=== PATIENT | female | born 1970 | race Caucasian/White ===

== ENCOUNTER 2021-02-19 08:59 | Outpatient (REF) | payer OTHER, SELFPAY ==
--- NOTE | ~2021-02-19 | XR_ITS ---
EXAMINATION: XR HAND, RIGHT CLINICAL INFORMATION: Pain in unspecified joint COMPARISON: None TECHNIQUE: PA, lateral, and oblique views of the right hand. FINDINGS: No fracture. No dislocation. Normal mineralization and alignment. XR/XR hand RT min 3V IMPRESSION: No acute osseous abnormality of the right hand.
--- NOTE | ~2021-02-19 | XR_ITS ---
EXAMINATION: XR HAND, LEFT CLINICAL INFORMATION: Pain and unspecified joint COMPARISON: None TECHNIQUE: PA, lateral, and oblique views of the left hand. FINDINGS: No fracture. No dislocation. Normal mineralization and alignment. No radiopaque foreign body. XR/XR hand LT min 3V IMPRESSION: No acute osseous abnormality of the left hand.
[2021-02-19 11:35] LABS: Hematocrit 39.3 % (37-47); Hemoglobin 13.5 g/dl (12.0-16.0); Mean Corpuscular HGB Conc 34.4 g/dl (31.0-35.0); Mean Corpuscular Hemoglobin 29.9 pg (27.0-33.0); Mean Corpuscular Volume 87.1 fL (80-98); Mean Platelet Volume 9.4 fL (9.4-12.3); Platelet Count 197 X10*3/uL (160-400); Red Blood Count 4.51 X10*6/uL (4.20-5.50); Red Cell Distribution Width 12.1 % (11.0-16.0); White Blood Count 4.8 X10*3/uL (4.8-10.8)
[2021-02-19 11:39] LABS: Appearance Urine CLEAR; Color Urine YELLOW; Glucose Urine UA NEG (NEG); Leukocyte Esterase Urine NEG (NEG); Nitrite Urine NEG (NEG); Specific Gravity - Urine 1.015 (1.005-1.025); Urine Blood NEG (NEG); Urine Ketones NEG (NEG); Urine Protein NEG (NEG-TRACE)
[2021-02-19 12:06] LABS: Alanine Aminotransferase 8 U/L (0-31); Albumin Level 4.6 g/dL (3.5-5.0); Alkaline Phosphatase 93 U/L (39-117); Anion Gap 12 (12-20); Aspartate Amino Transferase 16 U/L (5-31); Bilirubin Total 1.7 mg/dL (0.0-1.0); Blood Urea Nitrogen 11 mg/dL (9-16); Calcium 9.5 mg/dL (8.4-10.2); Carbon Dioxide 28 mmol/L (22-29); Chloride 104 mmol/L (96-108); Cholesterol 162 mg/dL; Estimated Glomerular Filt Rate > 60; Glucose Fasting 91 mg/dL (60-99); HDL Cholesterol 81 mg/dL; Iron 103 mcg/dL (30-160); LDL Cholesterol Calculated 72 mg/dl; Percent Iron Saturation 34 % (15-50); Potassium 4.1 mmol/L (3.3-5.1); Rheumatoid Factor < 15.0 IU/mL (<15.0); Sodium 140 mmol/L (135-145); Total Iron Binding Capacity 301 mcg/dL (228-428); Total Protein 6.7 g/dL (6.5-8.0); Triglycerides 45 mg/dL; Unsaturated Iron Binding 198 ug/dL
[2021-02-19 12:13] LABS: SARS COV2 IgG Negative (Negative)
[2021-02-19 12:19] LABS: TSH reflex Free T4 0.98 uIU/mL (0.32-4.0)
[2021-02-19 12:21] LABS: RBC Urine 0-2 /HPF (0); Squamous Epithelial Cell Urine TRACE /LPF; WBC Urine 0-2 /HPF (0-4)
[2021-02-23 12:46] LABS: Anti Nuclear Antibody Screen POSITIVE (NEGATIVE)
[2021-02-23 12:52] LABS: Anti Nuclear Antibody Titer 1:40 titer
[2021-02-23 20:56] LABS: Cyclic Citrullinated Peptide <16 UNITS
== END 2021-02-19 09:00 | disposition home or self-care (01) ==
LOC: HO.HMGCX 08:59
PROVIDERS: PCP Internal Medicine; Visit Provider Internal Medicine
DX: Z00.00 Encounter for general adult medical examination without abnormal findings (principal); Z20.822 Contact with and (suspected) exposure to COVID-19; M79.641 Pain in right hand; M79.642 Pain in left hand
CPT/HCPCS: 36415; 73130; 80053; 80061; 81001; 83540; 84443; 85027; 86038; 86039; 86200; 86431; 86769

== ENCOUNTER 2021-03-25 16:26 | Outpatient (REF) | payer OTHER, SELFPAY ==
--- NOTE | ~2021-03-25 | MM_ITS ---
EXAMINATION: MM SCREENING DIGITAL BREAST TOMOSYNTHESIS, BILATERAL CLINICAL INFORMATION: Screening. Asymptomatic. Family history breast cancer, mother. The lifetime risk of breast cancer based on the Tyrer-Cuzick Model is 12%. COMPARISON: Outside mammography: 01/07/2016 ([facility]). TECHNIQUE: Digital breast tomosynthesis is performed in both the craniocaudal and mediolateral oblique views along with computer-aided detection (CAD). Synthesized 2D images are generated from the tomosynthesis. Additional left MLO view is provided. FINDINGS: There are scattered areas of fibroglandular density (ACR BI-RADS breast composition Category b). Breast tissue composition borders on heterogeneously dense. Breast tissue composition appears less dense than on prior outside exam. The right breast shows no interval mass or architectural abnormality. Neither breast shows abnormal calcifications. The axilla are unremarkable. There is incidental dermal lesion overlying the posterior medial left breast. The left CC view has 0.5 cm asymmetric density retroareolar position just medial to midline. There is also a probable benign smooth nodule 3:00 retroareolar of uncertain chronicity, possibly chronic and partly obscured on prior exam. Patient will be recalled for additional imaging. MM/MM tomosynthesis screening BI IMPRESSION: 1. Left: Asymmetric density retroareolar position on CC view just medial to midline. Also probable benign smooth nodule 3:00 retroareolar. 2. Right: No mammographic evidence of malignancy. ASSESSMENT: BI-RADS 0: Incomplete - Need Additional Imaging Evaluation RECOMMENDATION: 1. Additional views of the left breast (3-D spot CC, 3-D spot ML). 2. Targeted ultrasound if warranted after review of the additional views. 3. Radiology department staff will contact the patient for additional imaging. This patient's information was entered into a reminder system with a target due date for their next mammogram.
== END 2021-03-25 16:27 | disposition home or self-care (01) ==
LOC: HO.MAMMO 16:26
PROVIDERS: Visit Provider Internal Medicine
DX: Z12.31 Encounter for screening mammogram for malignant neoplasm of breast (principal)
CPT/HCPCS: 77063; 77067

== ENCOUNTER 2021-04-05 14:23 | Outpatient (REF) | payer OTHER, SELFPAY ==
--- NOTE | ~2021-04-05 | MM_ITS ---
EXAMINATION: MM DIAGNOSTIC DIGITAL BREAST TOMOSYNTHESIS, LEFT US DIAGNOSTIC ULTRASOUND BREAST, LEFT CLINICAL INFORMATION: Recall from screening for 2 findings subareolar left breast: asymmetric density just medial to midline and small nodularity just lateral to midline. COMPARISON: Mammography: Mammography 03/25/2021, outside mammography 01/07/2016 ([facility]). TECHNIQUE: Digital breast tomosynthesis is performed. 2D images are generated from the tomosynthesis. The following views are obtained: Spot CC, spot ML. Ultrasound left breast is targeted to the subareolar and periareolar region using grayscale imaging and color Doppler without and with harmonics. FINDINGS: There are scattered areas of fibroglandular density (ACR BI-RADS breast composition Category b). Breast tissue composition borders on heterogeneously dense. Additional views show no persistent asymmetric density medial to midline. There is a small smooth nodularity subareolar breast corresponding to mild benign duct ectasia on ultrasound. Ultrasound demonstrates no cystic or solid mass. There is mild subareolar duct ectasia corresponding to the additional views. No intraductal mass or intraluminal color flow. No skin thickening or edema tracking in soft tissue planes. Results are discussed with the patient at time of visit. MM/MM tomosynthesis added views L IMPRESSION: Mild benign subareolar duct ectasia. ASSESSMENT: BI-RADS 2: Benign RECOMMENDATION: Routine annual mammography screening. This patient's information was entered into a reminder system with a target due date for their next mammogram.
== END 2021-04-05 14:24 | disposition home or self-care (01) ==
LOC: HO.MAMMO 14:23
PROVIDERS: Visit Provider Internal Medicine
DX: R92.2 Inconclusive mammogram (principal)
CPT/HCPCS: 76642; 77061; 77065

== ENCOUNTER 2021-07-12 15:29 | Emergency (ER) | payer OTHER, SELFPAY ==
--- NOTE | ~2021-07-12 | XR_ITS ---
EXAMINATION: XR HAND, LEFT CLINICAL INFORMATION: Laceration of finger. COMPARISON: Left hand 02/19/2021 TECHNIQUE: Three views of the left hand. FINDINGS: Soft tissue laceration of the distal fourth finger. There is a bandage around the distal fourth finger. No acute osseous abnormality. There is no fracture. Is no dislocation. XR/XR hand LT 2V IMPRESSION: Soft tissue laceration of the distal fourth finger. No acute osseous abnormality.
[2021-07-12 17:01] VITALS: BP 121/80; PULSE 113; RESP 18; TEMP 36.9; O2SAT 100; BMI 22.2
[2021-07-12] MEDS: Lidocaine HCl 1 % MPF 5 ML VIAL SUBCUT ×3 (17:55→18:56)
[2021-07-12 18:08] VITALS: BP 144/80; PULSE 102; RESP 16; O2SAT 99
--- NOTE | 2021-07-12 19:39 | ED_ITS ---
HPI - Wound/Laceration General Chief Complaint: Wound/Laceration Stated Complaint: left finger laceration Time Seen by Provider: 07/12/21 17:00 History of Present Illness HPI narrative: Patient complains of left 4th finger laceration when she tripped and fell and cut her finger on a glass No other injury no numbness weakness or tingling Related Data Previous Rx's Medication Instructions Recorded pimecrolimus 1 % topical cream 1 appl TOPICAL BID #100 g 02/10/21 (Elidel) cephalexin 500 mg tablet 500 mg PO TID 3 Days #9 tab 07/12/21 Allergies Allergy/AdvReac Type Severity Reaction Status Date / Time No Known Allergies Allergy Verified 07/12/21 14:28 Review of Systems Verdana 4l Review of Systems: Verdana 4d Verdana 4d Positive for left 4th finger laceration negatives are no dizziness no weakness no fainting no feeling faint no headache no neck pain no back pain no numbness weakness or tingling, no other extremity pains Verdana 4d Yes all other systemssystems are reviewed and are negative [facility] Past Medical History Source: nursing notes reviewed Medical History (Updated 07/12/21 @ 19:44 by CHELSEY Ramírez) Annual physical exam Arthralgia Psoriasis Family History Family History Father No problems noted. 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 Housing: House Patient Tobacco Use Status: Never used Tobacco e-Cigarette/Vaping Use: Never Used Advance Directives: No Advance Directives Information Provided: No Current occupational status: employed Physical Exam Verdana 4l Vital Signs: Verdana 4d Verdana 4d Vital Signs: Verdana 4d Verdana 4Bd Last Vital Signs Verdana 4d Cake Decorator New 4d Cake Decorator New 4d Temp 98.4 F 07/12/21 17:01 Cake Decorator New 4d Pulse 102 H 07/12/21 18:08 Cake Decorator New 4d Resp 16 07/12/21 18:08 BP 144/80 H 07/12/21 18:08 Pulse Ox 99 07/12/21 18:08 BMI result Body Mass Index 22.2 General appearance is no distress Head is normocephalic atraumatic Neck is supple Respiratory no distress Extremities full range of motion x4 Left ring finger exam the distal phalanx palmar surface has a large flap laceration with soft tissue protruding it is approximately 2.5 cm, there is sensation distal and flexion and extension seem intact tendon function seems intact, neurovascular intact Course Course Course Narrative: X-ray did not show any fracture or foreign body in the left 4th finger Procedure note The left 4th finger is numbed with 6 cc of 1% lidocaine digital block The wound is cleansed and irrigated with normal saline, checked for any foreign body none identified Closure is 7 x 5.0 nylon sutures Bleeding was controlled, and a dressing was applied The patient was informed that as it was a large flap lack that was nearly avulsed it remains to be seen if the skin is viable and she is advised to follow with hand doctor for follow-up check Discharge Plan Discharge Clinical Impression: Laceration of finger Patient Disposition: Home, Self-Care Additional Instructions: The skin of the flap laceration may pinked up and be good or it may turn into skin so I advise follow with the hand doctor to check wound healing The stitches should be removed in 7-10 days You got a tetanus shot today Return any time for redness swelling any sign of infection We are doing 3 days of preventive antibiotic Keflex Prescriptions: New cephalexin 500 mg tablet 500 mg PO TID 3 Days Qty: 9 0RF No Action pimecrolimus [Elidel] 1 % cream 1 appl topical BID Qty: 100 4RF Referrals: Pamela Garay MD [Physician] - 2 days (Skin available arshad about quarter- sized, question if the skin is viable it was sutured so advised to follow-up for hand doctor recheck)
== END 2021-07-12 19:53 | disposition home or self-care (01) ==
PROVIDERS: Emergency Provider Internal Medicine; PCP Internal Medicine
DX: S61.215A Laceration without foreign body of left ring finger without damage to nail, initial encounter (principal); W01.110A Fall on same level from slipping, tripping and stumbling with subsequent striking against sharp glass, initial encounter; Y93.9 Activity, unspecified; Y92.9 Unspecified place or not applicable; Y99.9 Unspecified external cause status
CPT/HCPCS: 12041; 73120; 90471; 99284

== ENCOUNTER 2022-03-02 09:25 | Outpatient (REF) | payer OTHER, SELFPAY ==
[2022-03-02 11:13] LABS: MANUAL DIFF FLAG NO
[2022-03-02 11:29] LABS: Basophils Absolute Auto 0.1 X10*3/uL (0.0-0.2); Basophils Percent Auto 1.1 % (0-2); Eosinophils Absolute Auto 0.1 X10*3/uL (0.0-0.4); Eosinophils Percent Auto 2.1 % (0-4); Hemoglobin 13.2 g/dl (12.0-16.0); Imm Gran Abs Auto 0.01 X10*3/uL (0.00-0.03); Imm Gran Pct Auto 0.2 % (0.0-0.4); Lymphocytes Absolute Auto 1.5 X10*3/uL (1.2-4.9); Lymphocytes Percent Auto 35.3 % (20-40); Mean Corpuscular HGB Conc 33.8 g/dl (31.0-35.0); Mean Corpuscular Hemoglobin 29.5 pg (27.0-33.0); Mean Corpuscular Volume 87.1 fL (80.0-98.0); Mean Platelet Volume 9.4 fL (9.4-12.3); Monocytes Absolute Auto 0.4 X10*3/uL (0.1-1.2); Monocytes Percent Auto 8.3 % (2-11); Neutrophils Absolute Auto 2.3 x10*3/uL (2.0-8.3); Platelet Count 189 X10*3/uL (160-400); Red Blood Count 4.48 X10*6/uL (4.20-5.50); White Blood Count 4.4 X10*3/uL (4.8-10.8)
[2022-03-02 11:52] LABS: Alanine Aminotransferase 11 U/L (0-31); Albumin Level 4.6 g/dL (3.5-5.0); Alkaline Phosphatase 89 U/L (39-117); Anion Gap 13 (12-20); Aspartate Amino Transferase 17 U/L (5-31); Bilirubin Total 1.3 mg/dL (0.0-1.0); Blood Urea Nitrogen 13 mg/dL (9-16); Calcium 9.3 mg/dL (8.4-10.2); Carbon Dioxide 28 mmol/L (22-29); Chloride 103 mmol/L (96-108); Cholesterol 178 mg/dL; Estimated Glomerular Filt Rate > 60; Glucose Fasting 95 mg/dL (60-99); HDL Cholesterol 81 mg/dL; LDL Cholesterol Calculated 90 mg/dl; Potassium 4.2 mmol/L (3.3-5.1); Sodium 140 mmol/L (135-145); Total Protein 6.9 g/dL (6.5-8.0); Triglycerides 35 mg/dL
[2022-03-02 11:56] LABS: TSH reflex Free T4 1.36 uIU/mL (0.32-4.0)
== END 2022-03-02 09:26 | disposition home or self-care (01) ==
LOC: HO.HMGCLDS 09:25
PROVIDERS: PCP Internal Medicine; Visit Provider Internal Medicine
DX: Z00.00 Encounter for general adult medical examination without abnormal findings (principal)
CPT/HCPCS: 36415; 80053; 80061; 84443; 85025

== ENCOUNTER 2022-08-30 15:31 | Outpatient (REF) | payer OTHER, SELFPAY ==
--- NOTE | ~2022-08-30 | MM_ITS ---
EXAMINATION: MM SCREENING DIGITAL BREAST TOMOSYNTHESIS, BILATERAL CLINICAL INFORMATION: Screening. Asymptomatic. Family history breast cancer, mother. The lifetime risk of breast cancer based on the Tyrer-Cuzick Model is 14%. COMPARISON: Mammography: 04/05/2021, 03/25/2021; 01/07/2016 ([facility]); left breast ultrasound 04/05/2021. TECHNIQUE: Digital breast tomosynthesis is performed in both the craniocaudal and mediolateral oblique views along with computer-aided detection (CAD). Synthesized 2D images are generated from the tomosynthesis. FINDINGS: There are scattered areas of fibroglandular density (ACR BI-RADS breast composition Category b). Breast tissue composition borders on heterogeneously dense. There is no significant mass or architectural abnormality or abnormal calcifications. Small circumscribed nodule around 5 mm again noted outer retroareolar left breast. The axilla are unremarkable. There is a dermal lesion again noted overlying the posterior medial left breast. MM/MM tomosynthesis screening BI IMPRESSION: No mammographic evidence of malignancy. ASSESSMENT: BI-RADS 2: Benign RECOMMENDATION: Routine annual mammography screening. This patient's information was entered into a reminder system with a target due date for their next mammogram.
== END 2022-08-30 15:32 | disposition home or self-care (01) ==
LOC: HO.MAMMO 15:31
PROVIDERS: PCP Internal Medicine; Visit Provider Internal Medicine
DX: Z12.31 Encounter for screening mammogram for malignant neoplasm of breast (principal)
CPT/HCPCS: 77063; 77067

== ENCOUNTER 2022-10-06 14:15 | Outpatient (REF) | payer OTHER, SELFPAY ==
--- NOTE | ~2022-10-06 | XR_ITS ---
EXAMINATION: XR KNEE AP STANDING CLINICAL INFORMATION: Pain COMPARISON: None available. TECHNIQUE: AP bilateral standing view of the knees was obtained. FINDINGS: Right knee: No fracture or subluxation. Compartmental joint spaces are maintained. Small marginal osteophytes of the patellofemoral compartment. No joint effusion. The soft tissues are unremarkable. Left knee: No fracture or subluxation. Compartmental joint spaces are maintained. Tiny marginal osteophytes of the patellofemoral compartment. No joint effusion. The soft tissues are unremarkable. XR/XR knee standing BI IMPRESSION: Mild degenerative changes of the patellofemoral compartments bilaterally.
== END 2022-10-06 14:16 | disposition home or self-care (01) ==
LOC: HO.HMGCX 14:15
PROVIDERS: PCP Internal Medicine; Visit Provider Internal Medicine
DX: M25.561 Pain in right knee (principal); M25.562 Pain in left knee
CPT/HCPCS: 73565

== ENCOUNTER 2022-11-02 10:57 | Outpatient (REF) | payer OTHER, SELFPAY ==
--- NOTE | ~2022-11-02 | XR_ITS ---
EXAMINATION: XR HAND, RIGHT CLINICAL INFORMATION: Pain COMPARISON: None available. TECHNIQUE: PA, lateral, and oblique views of the right hand. FINDINGS: Bone alignment is normal. No fracture or dislocation. 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 Small soft tissue calcification adjacent to the ulnar side of the DIP joint of the fourth finger. Joint spaces and soft tissues are otherwise unremarkable. XR/XR hand RT min 3V IMPRESSION: Small soft tissue calcification adjacent to the ulnar side of the DIP joint of the fourth finger. 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
== END 2022-11-02 10:58 | disposition home or self-care (01) ==
LOC: HO.HOSX 10:57
PROVIDERS: Visit Provider Orthopaedic Surgery
DX: L03.011 Cellulitis of right finger (principal)
CPT/HCPCS: 73130

== ENCOUNTER 2023-09-13 15:23 | Outpatient (REF) | payer OTHER, SELFPAY ==
--- NOTE | ~2023-09-13 | MM_ITS ---
EXAMINATION: MM SCREENING DIGITAL BREAST TOMOSYNTHESIS, BILATERAL CLINICAL INFORMATION: Screening. Asymptomatic. COMPARISON: Mammography: 08/30/2022, 04/05/2021, 03/25/2021, and 01/07/2016. TECHNIQUE: Digital breast tomosynthesis is performed in both the craniocaudal and mediolateral oblique views along with computer-aided detection (CAD). Synthesized 2D images are generated from the tomosynthesis. FINDINGS: The breasts are heterogeneously dense, which may obscure small masses (ACR BI-RADS breast composition Category c). Stable dermal lesion in the far medial posterior left breast. Mild vascular calcifications bilaterally. Small circumscribed nodule around 5 mm again noted outer retroareolar left breast. There are no suspicious masses, suspicious grouped calcifications, or areas of architectural distortion in either breast. The parenchymal pattern is stable from prior exams. No axillary abnormality. MM/MM tomosynthesis screening BI IMPRESSION: No mammographic evidence of malignancy. No significant change. ASSESSMENT: BI-RADS BI-RADS 2 - Benign Findings RECOMMENDATION: Routine annual mammography screening. 1 year F/U This examination should not preclude the clinical evaluation of a suspicious palpable abnormality. This patient's information was entered into a reminder system with a target due date for their next mammogram.
== END 2023-09-13 15:24 | disposition home or self-care (01) ==
LOC: HO.MAMMO 15:23
PROVIDERS: PCP Internal Medicine; Visit Provider Internal Medicine
DX: Z12.31 Encounter for screening mammogram for malignant neoplasm of breast (principal)
CPT/HCPCS: 77063; 77067

== ENCOUNTER → 2023-09-13 15:30 | Outpatient (BNV) | payer OTHER, SELFPAY | PROVIDERS: PCP Internal Medicine; Visit Provider Radiology Diagnostic Radiology | DX: Z12.31 Encounter for screening mammogram for malignant neoplasm of breast (principal) | CPT/HCPCS: 77063; 77067 ==

== ENCOUNTER 2024-02-23 13:29 | Outpatient (AMB) | payer OTHER, SELFPAY ==
--- NOTE | 2024-02-23 13:39 | MHC.PC.OV ---
Vital Signs 02/23/24 13:53 Height 5 ft 7 in Weight 147 lb BMI 23.0 BP 120/76 Blood Pressure Location Lt brachial Position Sitting Pulse 87 Pulse Source Pulse Oximeter Pulse Oximetry (%) 96 Oxygen Delivery Method Room Air Intake Visit Reasons: Body and bones pain Intake Note: Pt is here today for a follow up visit on pain all over her body. Allergies No Known Allergies Allergy (Verified 02/23/24 13:56) Medication List - Last Reconciled 02/23/24 by Naomi Mcduffie MD azelaic acid 20% 1 appl topical BID Tobacco use date assessed: 02/23/24 Dental Screening Dental Screen Date: 02/23/24 Did you have a dental visit in the last 12 months?: Yes Did you have a dental problem in the last 6 months where you did not have access to dental care?: No Was dental information given to patient?: Patient has dentist HPI Body and bones pain HPI Details Pt c/o diffuse all 4 extremities achiness and skin sensitivity to touch on and off for 2 years. Patient denies joint swelling erythema or warmth, stiffness. She denies insomnia depression fever chills night sweats. She would like to be checked for vitamins deficiency. Patient needs well-balanced diet and has been taking a multivitamin a day. 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 [facility] Medical History Psoriasis Arthralgia Annual physical exam Surgical History No pertinent past surgical history Family History Father No problems noted. 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 1. Little interest or pleasure in doing things: not at all 2. Feeling down, depressed, or hopeless: not at all 3. Trouble falling or staying asleep, or sleeping too much: not at all 4. Feeling tired or having little energy: not at all 5. Poor appetite or overeating: not at all 6. Feeling bad about yourself - or that you are a failure or have let yourself or your family down: not at all 7. Trouble concentrating on things, such as reading the newspaper or watching television: not at all 8. Moving or speaking so slowly that other people could have noticed. Or the opposite - being so fidgety or restless that you have been moving around a lot more than usual: not at all 9. Thoughts that you would be better off or of hurting yourself in some way: not at all Total score: 0 Depression Screening Interpretation: Negative Depression Screening Done: Yes 54683 - PHQ-9 Billing: Yes Source: Developed by Drs. Dusty Cabral, Brittney Clark, Tone Chris and colleagues, with an educational ezra from [employer]. Thrive Questionnaire Date Thrive assessed: 02/23/24 I am a: Patient What is your living situation today?: I have a steady place to live Within the past 12 months, did the food you bought not last and you didn't have the money to get more?: Never true Within the past 12 months, did you worry whether your food would run out before you got money to buy more?: Never true Do you have trouble paying for medicines?: No Do you have trouble getting transportation to medical appointments?: No Do you have trouble paying your heating and electricity bill?: No Do you have trouble taking care of your child, family member or friend?: No Do you have trouble with day-to-day activities such as bathing, preparing meals, shopping, managing finances, etc.?: No Are you currently unemployed and looking for a job?: No Are you interested in more education?: No Please select the resources that you would like help with: None THRIVE Score: 0 AUDIT C Alcohol Use Questionnaire (AUDIT-C) 1. How often do you have a drink containing alcohol?: Never 3. How often do you have six or more drinks on one occasion?: Never Total Score: 0 KATHRIN-7 AMB Questionnaire KATHRIN-7 Date KATHRIN - 7 assessed: 02/23/24 Feeling nervous, anxious, or on edge: 0 = Not at all Not being able to stop or control worryin = Not at all Worrying too much about different things: 0 = Not at all Trouble relaxin = Not at all Being so restless that it is hard to sit still: 0 = Not at all Becoming easily annoyed or irritable: 0 = Not at all Feeling afraid as if something awful might happen: 0 = Not at all Total KATHRIN-7 score (0-4 normal; 5-9 mild; 10-14 moderate; 15-21 severe): 0 Source: Developed by Drs. Dusty Cabarl, Brittney Clark, Tone Chris and colleagues, with an educational ezra from [employer]. KATHRIN-7 Assessment Billing KATHRIN-7 Assessment Tool: KATHRIN-7 Assessment 43128 Review of Systems Const All systems reviewed & are unremarkable except as noted in HPI and below Eyes Reports no additional complaints ENT Reports no additional complaints Card Reports no additional complaints Resp Reports no additional complaints GI Reports no additional complaints Reports no additional complaints Physical exam (Primary Care) Vital Signs: Last Vital Signs Pulse 87 02/23/24 13:53 BP 120/76 02/23/24 13:53 Pulse Ox 96 02/23/24 13:53 Oxygen Delivery Method Room Air 02/23/24 13:53 BMI result Body Mass Index 23.0 Tobacco/Smoking Status: Tobacco use Status Tobacco use date assessed 02/23/24 02/23/24 14:00 Patient Tobacco Use Status Never used Tobacco 02/23/24 14:00 e-Cigarette/Vaping Use Never Used 02/23/24 13:39 PHQ-9: PHQ-9 Score PHQ-9: Total score 0 02/23/24 14:00 Depression Screening Interpretation: Negative Thrive Assessment: Date of Thrive Assessment Date Thrive assessed 02/23/24 02/23/24 14:00 Const General: no acute distress HENMT Head: Yes normal to inspection Ears: hearing grossly normal bilaterally Face and sinus: Yes normal facial exam Throat: Yes posterior oropharynx normal Eyes General: appearance normal, both eyes and all related structures Neck Neck: Yes no lymphadenopathy and Yes supple Resp Effort & Inspection: normal respiratory effort Auscultation: clear to auscultation bilaterally Cardio Rhythm: regular rhythm Heart sounds: S1 normal heart sound present and S2 normal heart sound present GI Inspection: Yes normal to inspection Palpation (GI): Soft to palpation Percussion: Yes normal to percussion Auscultation: normal bowel sounds Skin General skin exam: no rashes or lesions noted Neuro Cranial nerves: Yes CN's II-XII intact bilaterally Gait exam (Neuro): Normal gait present Motor exam (neuro): 5/5 motor strength present throughout Extrem General: Yes normal to inspection, Yes full ROM, Yes no joint enlargement and Yes no clubbing, cyanosis or edema Right upper extremity: normal to inspection and full ROM Left upper extremity: normal to inspection and full ROM Psych Speech and movement: Normal speech and movement present Assessment and Plan Assessment & Plan (1) Annual physical exam: Code(s): Z00.00 - Encounter for general adult medical examination without abnormal findings Plan: Well-balanced diet regular physical activity discussed with the patient. She is up-to-date with the mammogram and refused colonoscopy and Pap smear (2) Arthralgia: Code(s): M25.50 - Pain in unspecified joint Plan: For diffuse extremity pains blood work including sed rate arthritis panel B12 and vitamin-D level will be checked. (3) History of Lyme disease: Code(s): Z86.19 - Personal history of other infectious and parasitic diseases Plan: Check Lyme titer Orders: Orders Vitamin B12 and Folate Today M25.50 - Pain in unspecified joint, Z00.00 - Encounter for general adult medical examination without abnormal findings Vitamin B1 Today M25.50 - Pain in unspecified joint, Z00.00 - Encounter for general adult medical examination without abnormal findings Vitamin D 25-OH Total Today M25.50 - Pain in unspecified joint, Z00.00 - Encounter for general adult medical examination without abnormal findings Erythrocyte Sedimentation Rate Today M25.50 - Pain in unspecified joint, Z00.00 - Encounter for general adult medical examination without abnormal findings Magnesium Today M25.50 - Pain in unspecified joint, Z00.00 - Encounter for general adult medical examination without abnormal findings RADHA Reflex Titer and Pattern Today M25.50 - Pain in unspecified joint, Z00.00 - Encounter for general adult medical examination without abnormal findings Complete Blood Count Auto Diff Today M25.50 - Pain in unspecified joint, Z00.00 - Encounter for general adult medical examination without abnormal findings Comprehensive [place]. Panel Fast Today M25.50 - Pain in unspecified joint, Z00.00 - Encounter for general adult medical examination without abnormal findings Lipid Panel Today M25.50 - Pain in unspecified joint, Z00.00 - Encounter for general adult medical examination without abnormal findings Vitamin B6 Today M25.50 - Pain in unspecified joint, Z00.00 - Encounter for general adult medical examination without abnormal findings TSH reflex Free T4 Today M25.50 - Pain in unspecified joint, Z00.00 - Encounter for general adult medical examination without abnormal findings Lyme IgG/IgM w/reflex to WB Today M25.50 - Pain in unspecified joint, Z00.00 - Encounter for general adult medical examination without abnormal findings Coding Level of Care Code Est Pt Prev Care 40-64y(71493) Diagnoses Annual physical exam Z00.00 Arthralgia M25.50 History of Lyme disease Z86.19 Additional Codes KATHRIN-7 Assessment Billing - KATHRIN-7 Assessment Tool: KATHRIN-7 Assessment [id number] ([id number])
[2024-02-23 13:53] VITALS: BP 120/76; PULSE 87; O2SAT 96; BMI 23.0
== END 2024-02-23 14:45 | disposition home or self-care (01) ==
PROVIDERS: PCP Internal Medicine; Visit Provider Internal Medicine
DX: Z00.00 Encounter for general adult medical examination without abnormal findings (principal); M25.50 Pain in unspecified joint; Z86.19 Personal history of other infectious and parasitic diseases
CPT/HCPCS: 99396

== ENCOUNTER 2024-03-09 09:40 | Outpatient (REF) | payer OTHER, SELFPAY ==
[2024-03-09 11:19] LABS: MANUAL DIFF FLAG NO
[2024-03-09 11:32] LABS: Eosinophils Absolute Auto 0.1 X10*3/uL (0.0-0.4); Eosinophils Percent Auto 2.9 % (0-4); Hematocrit 38.2 % (37.0-47.0); Hemoglobin 13.3 g/dl (12.0-16.0); Imm Gran Abs Auto 0.01 X10*3/uL (0.00-0.03); Imm Gran Pct Auto 0.2 % (0.0-0.4); Lymphocytes Absolute Auto 1.2 X10*3/uL (1.2-4.9); Lymphocytes Percent Auto 29.7 % (20-40); Mean Corpuscular HGB Conc 34.8 g/dl (31.0-35.0); Mean Corpuscular Hemoglobin 30.2 pg (27.0-33.0); Mean Corpuscular Volume 86.8 fL (80.0-98.0); Mean Platelet Volume 9.2 fL (9.4-12.3); Monocytes Absolute Auto 0.4 X10*3/uL (0.1-1.2); Monocytes Percent Auto 9.6 % (2-11); Neutrophils Absolute Auto 2.4 x10*3/uL (2.0-8.3); Neutrophils Percent Auto 56.6 % (45-73); Platelet Count 202 X10*3/uL (160-400); Red Cell Distribution Width 12.3 % (11.0-16.0); White Blood Count 4.2 X10*3/uL (4.8-10.8)
[2024-03-09 11:58] LABS: Alanine Aminotransferase 17 U/L (0-31); Albumin Level 4.6 g/dL (3.5-5.0); Alkaline Phosphatase 88 U/L (39-117); Anion Gap 12 (12-20); Aspartate Amino Transferase 21 U/L (5-31); Bilirubin Total 1.3 mg/dL (0.0-1.0); Blood Urea Nitrogen 12 mg/dL (9-16); Calcium 9.8 mg/dL (8.4-10.2); Carbon Dioxide 26 mmol/L (22-29); Chloride 106 mmol/L (96-108); Cholesterol 178 mg/dL (<200); Estimated Glomerular Filt Rate > 60; Glucose Fasting 96 mg/dL (60-99); HDL Cholesterol 88 mg/dL (>40); LDL Cholesterol Calculated 80 mg/dL (<100); Magnesium 2.3 mg/dL (1.6-2.6); Potassium 4.1 mmol/L (3.3-5.1); Sodium 140 mmol/L (135-145); Total Protein 7.1 g/dL (6.5-8.0); Triglycerides 53 mg/dL (<150)
[2024-03-09 12:02] LABS: TSH reflex Free T4 1.19 uIU/mL (0.32-4.0); Vitamin D 25-OH Total 56.2 ng/mL (>30)
[2024-03-09 12:16] LABS: Erythrocyte Sedimentation Rate 2 MM/HR (0-20)
[2024-03-09 12:19] LABS: Folate 16.1 ng/mL (> or = 4.0); Vitamin B12 525 pg/mL (200-900)
[2024-03-12 06:44] LABS: Lyme Abs Screen 1.03 index
[2024-03-13 11:48] LABS: Anti Nuclear Antibody Screen POSITIVE (NEGATIVE)
[2024-03-14 14:48] LABS: Vitamin B6 24.8 ng/mL (2.1-21.7)
[2024-03-15 17:54] LABS: Vitamin B1 15 nmol/L (8-30)
[2024-03-18 17:44] LABS: Lyme Blot 1.03 index
[2024-03-19 20:18] LABS: 18 KD (IgG) Band NON-REACTIVE; 23 KD (IgG) Band NON-REACTIVE; 23 KD (IgM) Band REACTIVE; 28 KD (IgG) Band NON-REACTIVE; 30 KD (IgG) Band NON-REACTIVE; 39 KD (IgM) Band NON-REACTIVE; 39KD (IgG) Band NON-REACTIVE; 41 KD (IgM) Band NON-REACTIVE; 41KD (IgG) Band NON-REACTIVE; 45 KD (IgG) Band NON-REACTIVE; 58 KD (IgG) Band NON-REACTIVE; 66 KD (IgG) Band NON-REACTIVE; 93 KD (IgG) Band NON-REACTIVE; Lyme IgG Blot Interp NEGATIVE (NEGATIVE); Lyme IgM Blot Interp NEGATIVE (NEGATIVE)
== END 2024-03-09 09:41 | disposition home or self-care (01) ==
LOC: HO.HMGCLDS 09:40
PROVIDERS: PCP Internal Medicine; Visit Provider Internal Medicine
DX: Z00.00 Encounter for general adult medical examination without abnormal findings (principal); M25.50 Pain in unspecified joint
CPT/HCPCS: 36415; 80053; 80061; 82306; 82607; 82746; 83735; 84207; 84425; 84443; 85025; 85652; 86038; 86039; 86617; 86618

== ENCOUNTER 2024-11-11 08:50 | Outpatient (REF) | payer OTHER, SELFPAY ==
[2024-11-12 06:04] LABS: Lyme Blot 1.29 index
[2024-11-13 13:17] LABS: Lyme Abs Screen POSITIVE
[2024-11-18 22:08] LABS: 18 KD (IgG) Band NON-REACTIVE; 23 KD (IgG) Band NON-REACTIVE; 23 KD (IgM) Band REACTIVE; 28 KD (IgG) Band NON-REACTIVE; 30 KD (IgG) Band NON-REACTIVE; 39 KD (IgM) Band NON-REACTIVE; 39KD (IgG) Band NON-REACTIVE; 41 KD (IgM) Band NON-REACTIVE; 41KD (IgG) Band NON-REACTIVE; 45 KD (IgG) Band NON-REACTIVE; 58 KD (IgG) Band NON-REACTIVE; 66 KD (IgG) Band NON-REACTIVE; 93 KD (IgG) Band NON-REACTIVE; Lyme IgG Blot Interp NEGATIVE (NEGATIVE); Lyme IgM Blot Interp NEGATIVE (NEGATIVE)
== END 2024-11-11 08:51 | disposition home or self-care (01) ==
LOC: HO.HMGCLDS 08:50
PROVIDERS: PCP Internal Medicine; Visit Provider Nurse Practitioner Family
DX: M25.59 Pain in other specified joint (principal); R50.9 Fever, unspecified; Z86.19 Personal history of other infectious and parasitic diseases
CPT/HCPCS: 36415; 86617; 86618

== ENCOUNTER 2024-11-11 08:50 | Outpatient (AMB) | payer OTHER, SELFPAY ==
--- OUTSIDE RECORDS SUMMARY | 2024-11-11 09:16 | XMS_ITS | Clinical Summary ---
Author Organization [facility] Address [address] [place] [address] Care Team Providers Care Lockstitch Topstitcher Name Role Phone Unavailable Primary Care Provider Unavailabl e Social History Tobacco Use Types Packs/Day Years Used Date Smoking Tobacco: Never Assessed Comments Unknown Sex and Gender Information Value Date Recorded Sex Assigned at Not on file Legal Sex Female 5:38 PM EST Gender Identity Not on file Sexual Orientation Not on file Plan of Treatment Health Maintenance Due Date Last Done Comments Breast Cancer Screening 1969 DTaP,Tdap,and Td Vaccines (1 - Tdap) 1988 Hepatitis B Vaccines (1 of 3 - 19+ 3-dose series) 1988 Cervical Cancer Screening: P ap Smear 1990 Pneumococcal Vaccine: 50+ Ye ars (1 of 1 - PCV) 2019 Zoster Vaccines (1 of 2) 2019 Colorectal Cancer Screening: Colonoscopy 01/02/2024 Depression Screening 01/02/2024 HIV Screening 01/02/2024 Hepatitis C Screening 01/02/2024 Social Influencers of Health Screening 01/02/2024 COVID-19 Vaccine ( - 2023-2 5 season) 2024 Influenza Vaccine (Season Ended) 2025 HIB Vaccines Aged Out No longer eligi ble based on patient's age to complete this topic HPV Vaccines Aged Out No longer eligi ble based on patient's age to complete this topic Hepatitis A Vaccines Aged Out No long er eligible based on patient's age to complete this topic IPV Vaccines Aged Out No longer eligi ble based on patient's age to complete this topic MMR Vaccines Aged Out No longer eligi ble based on patient's age to complete this topic Meningococcal ACWY Vaccine Aged Out N o longer eligible based on patient's age to complete this topic Meningococcal B Vaccine Aged Out No l onger eligible based on patient's age to complete this topic Pneumococcal Vaccine: Pediat rics (0 to 5 Years) and At-Risk Patients (6 to 64 Years) Aged Out No longer eligible b ased on patient's age to complete this topic RSV Immunization Patients Un ramón 20 months Aged Out No longer eligible b ased on patient's age to complete this topic Varicella Vaccines Aged Out No longer eligible based on patient's age to complete this topic
--- NOTE | 2024-11-11 09:32 | AM.OFFWIN_ITS ---
Intake Vital Signs 11/11/24 09:34 Height 5 ft 7 in Weight 147 lb BMI 23.0 BP 122/80 Blood Pressure Location Lt brachial Position Sitting Pulse 91 Pulse Source Pulse Oximeter Temp 98.1 F Temp Source Oral Pulse Oximetry (%) 98 Oxygen Delivery Method Room Air Intake Visit Reasons: EP hand swelling 10 days, body pain Intake Note: Patient here for headaches at back of neck, body aches and hand swelling that has been present for about 10 days. She would like to get checked for lyme since she has had it in the past. Patient Tobacco Use Status: Never used Tobacco Allergies No Known Allergies Allergy (Verified 11/11/24 09:36) Do you need a note to return to daycare/school/sports/work: No HPI HPI Comments History of Present Illness Details 54 y/o Female patient who presents to [facility] walk in clinic with c/o Subjective fevers, headaches at back of neck, body aches and right hand swelling that has been present for about 10 days. She would like to get tested for lyme disease since she previously had the disease. [facility] Medical History Psoriasis Arthralgia Annual physical exam Surgical History No pertinent past surgical history Family History Father No problems noted. 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 Cognitive needs: No Hearing needs: No Vision needs: Yes Review of Systems Const All systems reviewed & are unremarkable except as noted in HPI and below Physical Exam Vital Signs: Last Vital Signs Temp 98.1 F 11/11/24 09:34 Pulse 91 11/11/24 09:34 BP 122/80 11/11/24 09:34 Pulse Ox 98 11/11/24 09:34 Oxygen Delivery Method Room Air 11/11/24 09:34 BMI result Body Mass Index 23.0 Const General: no acute distress Orientation/consciousness: patient oriented x3 Resp Effort & Inspection: normal respiratory effort Auscultation: clear to auscultation bilaterally Cardio Heart sounds: S1 normal heart sound present and S2 normal heart sound present Neuro General: patient oriented x3, gait normal and moves all extremities Extrem Right upper extremity: Extremity exam: right hand Details: normal capillary refill and swelling Location: of the dorsal hand; no tenderness Left upper extremity: normal to inspection and full ROM Assessment & Plan Assessment & Plan (1) History of Lyme disease: Code(s): Z86.19 - Personal history of other infectious and parasitic diseases Plan: Tested Positive Lyme IGM 2023 - not clear if she received treatment or not. Ordered Another Lyme Advised NSAIDs for pain and fever relief. F/U with PCP. (2) Arthralgia: Code(s): M25.50 - Pain in unspecified joint Qualifiers: Joint pain location: other joint Qualified Code(s): M25.59 - Pain in other specified joint Plan: Tested Positive Lyme IGM 2023 - not clear if she received treatment or not. Ordered Another Lyme Advised NSAIDs for pain and fever relief. F/U with PCP. Orders: Orders Lyme IgG/IgM w/reflex to WB Today Z86.19 - Personal history of other infectious and parasitic diseases Coding Level of Care Code Est Pt Level 4 (18759) Diagnoses History of Lyme disease Z86.19 Pain in other joint M25.59 Joint pain location: other joint Time Spent (min) 20
[2024-11-11 09:34] VITALS: BP 122/80; PULSE 91; TEMP 36.7; O2SAT 98; BMI 23.0
== END 2024-11-11 10:24 | disposition home or self-care (01) ==
PROVIDERS: PCP Internal Medicine; Visit Provider Nurse Practitioner Family
DX: Z86.19 Personal history of other infectious and parasitic diseases (principal); M25.59 Pain in other specified joint

== ENCOUNTER 2024-11-20 15:02 | Outpatient (AMB) | payer OTHER, SELFPAY ==
[2024-11-20 15:04] VITALS: BP 136/76; PULSE 89; RESP 16; TEMP 36.8; O2SAT 99; BMI 23.0
--- NOTE | 2024-11-20 15:04 | MHC.PC.OV ---
Vital Signs 11/20/24 15:04 Height 5 ft 7 in Weight 147 lb BMI 23.0 BP 136/76 Blood Pressure Location Rt brachial Position Sitting Respiration 16 Pulse 89 Pulse Source Pulse Oximeter Temp 98.2 F Temp Source Oral Pulse Oximetry (%) 99 Intake Visit Reasons: hand pain follow up from MD Allergies No Known Allergies Allergy (Verified 11/11/24 09:36) Medication List - Last Reconciled 11/20/24 by Ladi Cheng MD ascorbic acid (vitamin C) mg PO vitamin D3-vitamin K2 (MK4) 1,000-100 unit-mcg 1 tab PO DAILY Tobacco use date assessed: 11/20/24 Dental Screening Dental Screen Date: 11/20/24 Did you have a dental visit in the last 12 months?: Yes Did you have a dental problem in the last 6 months where you did not have access to dental care?: Yes Was dental information given to patient?: Patient has dentist HPI hand pain follow up from MD HPI Details History - The patient is a 54-year-old female presenting with a flare-up of Lyme Disease symptoms. - The patient reports experiencing a high fever of 38.5?C about three weeks ago, which persisted for three days. - She describes experiencing severe body pain, particularly in the bones and shoulders, which has been ongoing. - The patient has a history of Lyme Disease diagnosed six years ago, treated with two courses of antibiotics. - Initially, symptoms resolved; however, she reports a resurgence in symptoms, including bone pain and headaches, especially at night. - Laboratory results shows Lyme Disease, but titers were noted to be elevated. Lyme IgM 23 KD a band positive, with Lyme progressive test titer higher than February And patient is symptomatic with recurrent tick bites Medical History: - History of Lyme Disease, initially treated six years ago Social History: - The patient mentions frequent tick bites and extensive measures taken at home to reduce tick exposure, including spraying disinfectant and treating pets. - The patient notes staying active and engaged in proactive measures to manage her home environment. Problem List - Lyme Disease flare Patient Instructions - The patient was instructed to take doxycycline twice a day, 12 hours apart, for one month. - Pickup the prescribed medication from the pharmacy. - Maintain precautions against tick exposure at home. - Monitor for any worsening symptoms and follow-up if needed. Review of Systems - General: No fever no chills - Neurological: No headaches no dizziness - Ear nose throat: No sore throat no hearing difficulty no ear pain - Cardiovascular: No syncope, no chest pain, no palpitations - Gastrointestinal: No nausea vomiting or diarrhea Physical Exam - General: No acute distress - HEENT: No acute findings - Neck: Supple - Respiratory system: Able to talk in full sentences, no audible wheeze - Cardiovascular: S1-S2 regular in rate and rhythm - Gastrointestinal: No pain - Extremities: Take bite right forearm 3 days ago - CONTACT OFFICER: Alert awake oriented x3 motor sensory intact - Skin: Normal turgor PENDING SALE TO [facility] Medical History Psoriasis Arthralgia Annual physical exam Surgical History (Reviewed 11/20/24 @ 15: by Ladi Cheng MD) No pertinent past surgical history Family History Father No problems noted. 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 1. Little interest or pleasure in doing things: not at all 2. Feeling down, depressed, or hopeless: not at all 3. Trouble falling or staying asleep, or sleeping too much: not at all 4. Feeling tired or having little energy: not at all 5. Poor appetite or overeating: not at all 6. Feeling bad about yourself - or that you are a failure or have let yourself or your family down: not at all 7. Trouble concentrating on things, such as reading the newspaper or watching television: not at all 8. Moving or speaking so slowly that other people could have noticed. Or the opposite - being so fidgety or restless that you have been moving around a lot more than usual: not at all 9. Thoughts that you would be better off or of hurting yourself in some way: not at all Total score: 0 Depression Screening Interpretation: Negative Depression Screening Done: Yes 68757 - PHQ-9 Billing: Yes Source: Developed by Drs. Dusty Cabral, Brittney Clark, Tone Chris and colleagues, with an educational ezra from [email or web address]. Thrive Questionnaire Date Thrive assessed: 11/20/24 I am a: Patient What is your living situation today?: I have a steady place to live Within the past 12 months, did the food you bought not last and you didn't have the money to get more?: Never true Within the past 12 months, did you worry whether your food would run out before you got money to buy more?: Never true Do you have trouble paying for medicines?: No Do you have trouble getting transportation to medical appointments?: No Do you have trouble paying your heating and electricity bill?: No Do you have trouble taking care of your child, family member or friend?: No Do you have trouble with day-to-day activities such as bathing, preparing meals, shopping, managing finances, etc.?: No Are you currently unemployed and looking for a job?: No Are you interested in more education?: No THRIVE Score: 0 AUDIT C Alcohol Use Questionnaire (AUDIT-C) 1. How often do you have a drink containing alcohol?: Never Total Score: 0 KATHRIN-7 AMB Questionnaire KATHRIN-7 Date KATHRIN - 7 assessed: 11/20/24 Feeling nervous, anxious, or on edge: 0 = Not at all Not being able to stop or control worryin = Not at all Worrying too much about different things: 0 = Not at all Trouble relaxin = Not at all Being so restless that it is hard to sit still: 0 = Not at all Becoming easily annoyed or irritable: 0 = Not at all Feeling afraid as if something awful might happen: 0 = Not at all Total KATHRIN-7 score (0-4 normal; 5-9 mild; 10-14 moderate; 15-21 severe): 0 Source: Developed by Drs. Dusty Cabral, Brittney Clark, Tone Chris and colleagues, with an educational ezra from [email or web address]. Physical exam (Primary Care) Vital Signs: Last Vital Signs Temp 98.2 F 11/20/24 15:04 Pulse 89 11/20/24 15:04 Resp 16 11/20/24 15:04 BP 136/76 11/20/24 15:04 Pulse Ox 99 11/20/24 15:04 BMI result Body Mass Index 23.0 Tobacco/Smoking Status: Tobacco use Status Tobacco use date assessed 11/20/24 11/20/24 15:10 Patient Tobacco Use Status Never used Tobacco 11/20/24 15:05 e-Cigarette/Vaping Use Never Used 11/20/24 15:05 PHQ-9: PHQ-9 Score PHQ-9: Total score 0 11/20/24 15:13 Depression Screening Interpretation: Negative Thrive Assessment: Date of Thrive Assessment Date Thrive assessed 11/20/24 11/20/24 15:13 Coding Level of Care Code Est Pt Level 3 (78675) Diagnoses Joint pain due to Lyme disease A69.20; M25.50 Additional Codes PHQ-9 - 93761 - PHQ-9 Billing: Yes ([id number]) Assessment & Plan Assessment & Plan (1) Joint pain due to Lyme disease: Code(s): A69.20 - Lyme disease, unspecified; M25.50 - Pain in unspecified joint Category: Medical Plan History - The patient is a 54-year-old female presenting with a flare-up of Lyme Disease symptoms. - The patient reports experiencing a high fever of 38.5?C about three weeks ago, which persisted for three days. - She describes experiencing severe body pain, particularly in the bones and shoulders, which has been ongoing. - The patient has a history of Lyme Disease diagnosed six years ago, treated with two courses of antibiotics. - Initially, symptoms resolved; however, she reports a resurgence in symptoms, including bone pain and headaches, especially at night. - Laboratory results shows Lyme Disease, but titers were noted to be elevated. Lyme IgM 23 KD a band positive, with Lyme progressive test titer higher than February And patient is symptomatic with recurrent tick bites Medical History: - History of Lyme Disease, initially treated six years ago Social History: - The patient mentions frequent tick bites and extensive measures taken at home to reduce tick exposure, including spraying disinfectant and treating pets. - The patient notes staying active and engaged in proactive measures to manage her home environment. Problem List - Lyme Disease flare Patient Instructions - The patient was instructed to take doxycycline twice a day, 12 hours apart, for one month. - Pickup the prescribed medication from the pharmacy. - Maintain precautions against tick exposure at home. - Monitor for any worsening symptoms and follow-up if needed. Medications: New doxycycline hyclate 100 mg PO BID 30 days 60 caps 0RF
--- OUTSIDE RECORDS SUMMARY | 2024-11-20 17:19 | XMS_ITS | Clinical Summary ---
Author Organization [facility] Address [address] [place] [address] Care Team Providers Care Tearer Name Role Phone Unavailable Primary Care Provider [...]
== END 2024-11-20 15:25 | disposition home or self-care (01) ==
LOC: HO.HMCC 15:03
PROVIDERS: PCP Internal Medicine; Visit Provider Internal Medicine
DX: A69.20 Lyme disease, unspecified (principal); M25.50 Pain in unspecified joint

== ENCOUNTER → 2024-11-20 15:02 | Outpatient (BNVA) | payer OTHER, SELFPAY | PROVIDERS: PCP Internal Medicine; Visit Provider Internal Medicine | DX: A69.20 Lyme disease, unspecified (principal); M25.50 Pain in unspecified joint | CPT/HCPCS: 96127 ==

== ENCOUNTER 2025-01-03 08:06 | Outpatient (AMB) | payer OTHER, SELFPAY ==
--- NOTE | 2025-01-03 08:08 | A.OFFPC_ITS ---
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: Patient has dentist HPI PE HPI Details Patient presents for physical [facility] Medical History (Updated 01/03/25 @ 08:47 by Naomi Mcduffie MD) Normal pelvic exam Colonoscopy refused Psoriasis Arthralgia Annual physical exam Surgical History No pertinent past surgical history Family History Father No problems noted. 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 1. Little interest or pleasure in doing things: not at all 2. Feeling down, depressed, or hopeless: not at all 3. Trouble falling or staying asleep, or sleeping too much: not at all 4. Feeling tired or having little energy: not at all 5. Poor appetite or overeating: not at all 6. Feeling bad about yourself - or that you are a failure or have let yourself or your family down: not at all 7. Trouble concentrating on things, such as reading the newspaper or watching television: not at all 8. Moving or speaking so slowly that other people could have noticed. Or the opposite - being so fidgety or restless that you have been moving around a lot more than usual: not at all 9. Thoughts that you would be better off or of hurting yourself in some way: not at all Total score: 0 Depression Screening Interpretation: Negative Depression Screening Done: Yes 18257 - PHQ-9 Billing: Yes Source: Developed by Drs. Dusty Cabral, Tone Jacques and colleagues, with an educational ezra from [employer]. Thrive Questionnaire Date Thrive assessed: 11/20/24 KATHRIN-7 AMB Questionnaire KATHRIN-7 Date KATHRIN - 7 assessed: 01/03/25 Feeling nervous, anxious, or on edge: 0 = Not at all Not being able to stop or control worryin = Not at all Worrying too much about different things: 0 = Not at all Trouble relaxin = Not at all Being so restless that it is hard to sit still: 0 = Not at all Becoming easily annoyed or irritable: 0 = Not at all Feeling afraid as if something awful might happen: 0 = Not at all Total KATHRIN-7 score (0-4 normal; 5-9 mild; 10-14 moderate; 15-21 severe): 0 Source: Developed by Drs. Dusty Cabral, Tone Jacques and colleagues, with an educational ezra from [employer]. KATHRIN-7 Assessment Billing KATHRIN-7 Assessment Tool: KATHRIN-7 Assessment 86322 Review of Systems Const All systems reviewed & are unremarkable except as noted in HPI and below Eyes Reports no additional complaints ENT Reports no additional complaints Card Reports no additional complaints Resp Reports no additional complaints GI Reports no additional complaints Reports no additional complaints Physical exam (Primary Care) Vital Signs: Last Vital Signs Temp 98.2 F 01/03/25 08:11 Pulse 67 01/03/25 08:11 Resp 16 01/03/25 08:11 BP 122/84 01/03/25 08:11 Pulse Ox 97 01/03/25 08:11 BMI result Body Mass Index 23.2 Tobacco/Smoking Status: Tobacco use Status Tobacco use date assessed 01/03/25 01/03/25 08:16 Patient Tobacco Use Status Never used Tobacco 01/03/25 08:16 e-Cigarette/Vaping Use Never Used 01/03/25 08:16 PHQ-9: PHQ-9 Score PHQ-9: Total score 0 01/03/25 08:16 Depression Screening Interpretation: Negative Thrive Assessment: Date of Thrive Assessment Date Thrive assessed 11/20/24 01/03/25 08:16 Const General: no acute distress HENMT Head: Yes normal to inspection General nose exam: Normal external nose present Face and sinus: Yes normal facial exam Mouth: Normal oral and palatal mucosa present Teeth and gingiva: dentition normal Throat: Yes posterior oropharynx normal Eyes General: appearance normal, both eyes and all related structures Neck Neck: Yes no lymphadenopathy and Yes supple Resp Effort & Inspection: normal respiratory effort Auscultation: clear to auscultation bilaterally Cardio Rhythm: regular rhythm Heart sounds: S1 normal heart sound present and S2 normal heart sound present GI Inspection: Yes normal to inspection Palpation (GI): Soft to palpation Percussion: Yes normal to percussion Auscultation: normal bowel sounds Coding Level of Care Code Est Pt Prev Care 40-64y(98820) Diagnoses Annual physical exam Z00.00 Additional Codes KATHRIN-7 Assessment Billing - KATHIRN-7 Assessment Tool: KATHRIN-7 Assessment 57370 ([id number]) PHQ-9 - 10371 - PHQ-9 Billing: Yes ([id number]) Assessment & Plan Assessment & Plan (1) Annual physical exam: Code(s): Z00.00 - Encounter for general adult medical examination without abnormal findings Category: Medical Plan: Well-balanced diet regular physical activity discussed with the patient , she will have a fasting blood work today. Mammogram will be scheduled. Patient refused colonoscopy, Cologuard is ordered Orders: Orders Vitamin D 25-OH Total Today Z00.00 - Encounter for general adult medical examination without abnormal findings Lipid Panel Today Z00.00 - Encounter for general adult medical examination without abnormal findings Coenzyme Q10, Total Today Z00.00 - Encounter for general adult medical examination without abnormal findings UA w Microscopic Today D23.9 - Other benign neoplasm of skin, unspecified, Z00.00 - Encounter for general adult medical examination without abnormal findings MM screening mammo BI Today Z12.31 - Encounter for screening mammogram for malignant neoplasm of breast Comprehensive [place]. Panel Fast Today Z00.00 - Encounter for general adult medical examination without abnormal findings Complete Blood Count Auto Diff Today Z00.00 - Encounter for general adult medical examination without abnormal findings TSH reflex Free T4 Today Z00.00 - Encounter for general adult medical examination without abnormal findings Referrals Cologuard Test Z12.11 - Encounter for screening for malignant neoplasm of colon, Z12.12 - Encounter for screening for malignant neoplasm of rectum Dermatology Referral D23.9 - Other benign neoplasm of skin, unspecified Medications: Discontinued doxycycline hyclate Discontinued Reason: Doctor's Order 100 mg PO BID 30 days 60 caps 0RF
--- OUTSIDE RECORDS SUMMARY | 2025-01-03 08:10 | XMS_ITS | Clinical Summary ---
Author Organization [facility] Address [address] [place] [address] Care Team Providers Care Commercial Litigation Associate Name Role Phone Unavailable Primary Care Provider [...] 2) 2019 Colorectal Cancer Screening: Colonoscopy 01/02/2024 HIV Screening 01/02/2024 Hepatitis C Screening 01/02/2024 Social Influencers of Health Screening 01/02/2024 COVID-19 Vaccine (1 - 2023-2 5 season) 2024 Depression Screening 06/12/2024 Influenza Vaccine (#1) 2025 HIB Vaccines Aged Out No longer [...]
[2025-01-03 08:11] VITALS: BP 122/84; PULSE 67; RESP 16; TEMP 36.8; O2SAT 97; BMI 23.2
== END 2025-01-03 08:53 | disposition home or self-care (01) ==
LOC: HO.HMCC 08:07
PROVIDERS: PCP Internal Medicine; Visit Provider Internal Medicine
DX: Z00.00 Encounter for general adult medical examination without abnormal findings (principal)

== ENCOUNTER 2025-01-03 08:06 | Outpatient (REF) | payer OTHER, SELFPAY ==
[2025-01-03 10:16] LABS: MANUAL DIFF FLAG NO
[2025-01-03 10:20] LABS: Hematocrit 38.4 % (37.0-47.0); Hemoglobin 12.9 g/dl (12.0-16.0); Imm Gran Abs Auto 0.01 X10*3/uL (0.00-0.03); Imm Gran Pct Auto 0.2 % (0.0-0.4); Lymphocytes Absolute Auto 1.3 X10*3/uL (1.2-4.9); Mean Corpuscular HGB Conc 33.6 g/dl (31.0-35.0); Mean Corpuscular Hemoglobin 29.1 pg (27.0-33.0); Mean Corpuscular Volume 86.7 fL (80.0-98.0); NRBC Abs Auto 0.000 X10*3/uL (0.0-0.012); NRBC Pct Auto 0.0 /100WBC (0.0-0.2); Platelet Count 180 X10*3/uL (160-400); Red Blood Count 4.43 X10*6/uL (4.20-5.50); White Blood Count 4.2 X10*3/uL (4.8-10.8)
[2025-01-03 10:46] LABS: Alanine Aminotransferase 17 U/L (0-31); Albumin Level 4.7 g/dL (3.5-5.0); Alkaline Phosphatase 85 U/L (39-117); Anion Gap 11 (12-20); Aspartate Amino Transferase 21 U/L (5-31); Blood Urea Nitrogen 14 mg/dL (9-16); Calcium 9.2 mg/dL (8.4-10.2); Carbon Dioxide 27 mmol/L (22-29); Chloride 107 mmol/L (96-108); Cholesterol 191 mg/dL (<200); Estimated Glomerular Filt Rate > 60; HDL Cholesterol 84 mg/dL (>40); Potassium 4.2 mmol/L (3.3-5.1); Sodium 141 mmol/L (135-145); Total Protein 6.8 g/dL (6.5-8.0); Triglycerides 57 mg/dL (<150)
[2025-01-03 10:51] LABS: Appearance Urine Clear; Glucose Urine UA Negative (Negative); PH 5.5 (5.0-9.0); Specific Gravity - Urine 1.020 (1.005-1.025); UMIC TRIGGER UA YES
[2025-01-15 10:07] LABS: Coenzyme Q10, Total 0.58 ug/mL (>0.35)
== END 2025-01-03 08:07 | disposition home or self-care (01) ==
LOC: HO.HMGCLDS 08:06
PROVIDERS: PCP Internal Medicine; Visit Provider Internal Medicine
DX: Z00.00 Encounter for general adult medical examination without abnormal findings (principal); D23.9 Other benign neoplasm of skin, unspecified; Z13.31 Encounter for screening for depression; Z13.39 Encounter for screening examination for other mental health and behavioral disorders
CPT/HCPCS: 36415; 80053; 80061; 81001; 82306; 82542; 84443; 85025; 96127